=== PATIENT | male | born 1965 | race Caucasian/White ===

== ENCOUNTER 2017-01-08 00:19 | Emergency (ER) | payer BC ==
--- NOTE | 2017-01-08 00:38 | ERPHSYRPT ---
- History of Present Illness Time Seen by Provider: 01/08/17 00:33 Source: patient, family Exam Limitations: no limitations Physician History: pt is 51 year old male who had a railroad tie fall off and hit his right lower leg and pin his leg for 30 minutes ; tender eccymotic right lower leg neurovasc intact distally; no other complaint of injuries ; is able to bear weight. Method of Injury: direct blow Occurred: just prior to arrival Quality: constant, sharpness, throbbing Severity of Pain-Max: moderate Severity of Pain-Current: moderate Lower Extremities Pain: leg: right, ankle: right Modifying Factors: Improves With: immobilization, movement Allergies/Adverse Reactions: No Known Drug Allergies Allergy (Unverified 01/08/17 00:41) Home Medications: Linagliptin [Tradjenta] 5 mg PO DAILY 01/08/17 [History] Metformin HCl 0 mg PO DAILY 01/08/17 [History] - Review of Systems Constitutional: No Fever, No Chills Eyes: No Symptoms Ears, Nose, & Throat: No Symptoms Respiratory: No Cough, No Dyspnea Cardiac: No Chest Pain, No Edema, No Syncope Abdominal/Gastrointestinal: No Abdominal Pain, No Nausea, No Vomiting, No Diarrhea Genitourinary Symptoms: No Dysuria Musculoskeletal: Injury, Joint Pain, No Back Pain, No Neck Pain Skin: No Rash Neurological: No Dizziness, No Focal Weakness, No Sensory Changes Psychological: No Symptoms Endocrine: No Symptoms All Other Systems: Reviewed and Negative - Past Medical History Pertinent Past Medical History: No - Nursing Vital Signs Nursing Vital Signs: Initial Vital Signs Temperature 97.9 F 01/08/17 00:34 Pulse Rate 92 H 01/08/17 00:34 Respiratory Rate 16 01/08/17 00:34 Blood Pressure 141/89 01/08/17 00:34 O2 Sat by Pulse Oximetry 97 01/08/17 00:34 Pain Scale Pain Intensity 3 - Physical Exam General Appearance: no apparent distress, alert Eyes, Ears, Nose, Throat Exam: moist mucous membranes Neck Exam: non-tender, supple Cardiovascular/Respiratory Exam: chest non-tender, normal breath sounds, regular rate/rhythm, no respiratory distress Gastrointestinal/Abdominal Exam: non-tender, guarding Back Exam: normal inspection, No vertebral tenderness Hips Exam: bilateral: non-tender, normal inspection, normal range of motion, no evidence of injury Legs Exam: right leg: bone tenderness, ecchymosis, limited range of motion, pain , soft tissue tenderness, swelling, left leg: non-tender, normal inspection, normal range of motion, no evidence of injury Knees Exam: bilateral knee: non-tender, normal inspection, normal range of motion, no evidence of injury Ankle Exam: right ankle: joint effusion, limited range of motion, pain, soft tissue tenderness, swelling, left ankle: non-tender, normal inspection, normal range of motion, no evidence of injury Foot Exam: bilateral foot: non-tender, normal inspection, normal range of motion , no evidence of injury DTR - Lower Extremities Exam: knee (R): 2+, knee (L): 2+, ankle (R): 2+, ankle ( L): 2+ Neuro/Tendon Exam: normal sensation, normal motor functions Mental Status Exam: alert, oriented x 3, cooperative Skin Exam: normal color, warm, dry Procedures - Splinting Location of Splint: Right, Ankle Type of Splint: Air Cast Splint Applied By: ED Nurse Pre-Proc Neuro Vasc Exam: normal Post-Proc Neuro Vasc Exam: neurovascular intact, unchanged from pre-exam - Course Nursing assessment & vital signs reviewed: Yes - Radiology Exams Lower Leg X-ray Interpretation: Reviewed by me, Other (no obvious fracture distal stress line) Right Ankle X-ray Interpretation: Reviewed by me, Other (tissue line overlying distal fib without obvious fracture , may have occult fracture) Ordered Tests: Active Orders 24 hr Category Date Time Status ANKLE (3 VIEWS) Stat Exams 01/08/17 00:41 Taken LOWER LEG Stat Exams 01/08/17 00:39 Taken CK-Creatinine Phosphokinase Stat Lab 01/08/17 01:06 Received - Progress Progress: improved, re-examined Progress Note: 01/08/17 01:39 pt declines crutches Counseled pt/family regarding: lab results, diagnosis, need for follow-up, rad results - Departure Time of Disposition: 01:36 Departure Disposition: Home Clinical Impression: Contusion of right ankle Condition: Good Critical Care Time: No Instructions: Ankle Sprain, Ankle Fracture Additional Instructions: followup your blood pressure with your Dr. we are giving you ankle fracture precautions and a splint as there could be an undetected or occult fracture later determined by the radiologist or sometimes show up after several days on a later x-ray after bone starts to repair; return or see your Dr if continues to have symptoms as ligament injury or a fracture as discussed could be present in that situation. Prescriptions: Hydrocodone/Acetaminophen [Palmer 5-325 Tablet] 1 each PO Q4-6HPRN PRN #14 tablet PRN Reason: Pain
[2017-01-08 00:46] VITALS: O2SAT 97
[2017-01-08 02:03] VITALS: BP 140/80; PULSE 84
--- NOTE | 2017-01-08 10:06 | XRAY ---
Indication: Pain following fall. Comparison: None 3 views of the right ankle demonstrates soft tissue swelling and tiny posterior heel spur. No other bony, articular, or soft tissue abnormalities.
--- NOTE | 2017-01-08 10:06 | XRAY ---
Indication: Pain following fall. Comparison: None 2 views of the right lower leg demonstrates distal soft tissue swelling. No other bony, articular, or soft tissue abnormalities.
== END 2017-01-08 02:03 | disposition home or self-care (01) ==
LOC: ED 00:19
DX: S90.01XA Contusion of right ankle, initial encounter (principal); W20.8XXA Other cause of strike by thrown, projected or falling object, initial encounter
CPT/HCPCS: 36415; 73590; 73610; 82550; 99284